=== PATIENT | male | born 1965 | race Hispanic/Latino ===

== ENCOUNTER 2019-05-17 18:06 | Emergency (ER) | payer BC ==
[~2019-05-17] VITALS: Ht 177.8 cm; Wt 132.4 kg
--- OUTSIDE RECORDS SUMMARY | 2019-05-17 18:09 | XMS REPORT | Clinical Summary ---
Author Author [facility] Organization [facility] Address Unknown Phone Unavailable Care Team Providers Care New Car Make Ready Worker Name Role Phone Eben Porter MD PCP Allergies No Known Allergies Medications End Date Status Medication Sig Dispensed Refills Start Date Active diclofenac (VOLTAREN) 75 TAKE 1 TABLET 180 tablet 2 MG EC tablet BY MOUTH 9 TWICE A DAY NEEDED Status Hospital, Clinic, or Ordered Dose Route Frequency Start End Date Other Facility Date Administered Medication Ended methylPREDNISolone 40 mg IM once 10/01/19 acetate (DEPO-MEDROL) 19 9 injection 40 mgIndications: Primary osteoarthritis of both knees Ended bupivacaine (MARCAINE) 1 mL inj once 10/01/19 0.25 % (2.5 mg/mL) 19 9 injection 1 mLIndications: Primary osteoarthritis of both knees Ended methylPREDNISolone 40 mg IM once 10/01/19 acetate (DEPO-MEDROL) 19 9 injection 40 mgIndications: Primary osteoarthritis of both knees Ended bupivacaine (MARCAINE) 1 mL inj once 10/01/19 0.25 % (2.5 mg/mL) 19 9 injection 1 mLIndications: Primary osteoarthritis of both knees Active Problems Problem Noted Date Primary osteoarthritis of both knees 10/10/2018 Class 3 severe obesity with body mass index (BMI) of 45.0 to 49.9 in adult 10/10/2018 Encounters Care Team Description Date Type Specialty Terry Huffman Jr., MD 12/21/2018 Refill Orthopedic Surgery Terry Huffman Jr., MD Primary osteoarthritis of both knees (Primary Dx); Class 3 severe obesity with body mass index (BMI) of 45.0 to 49.9 in adult, unspecified obesity type, unspecified whether serious comorbidity present (HCC); Enchondroma of left femur 10/01/2018 Office Visit Orthopedic Surgery Shabana Clemens, NEGRITA Chronic pain of both knees (Primary Dx) 09/25/2018 Orders Only Orthopedic Surgery after 05/16/2018 Family History Medical History Relation Name Comments No Known Problems Brother No Known Problems Father No Known Problems Mother No Known Problems Sister Relation Name Status Comments Brother Father Mother Sister Social History Date Tobacco Use Types Packs/Day Years Used Never Smoker Smokeless Tobacco: Never Used Drinks/Week oz/Week Comments Alcohol Use No Alcohol Habits Answer Date Recorded How often do you have a drink containing alcohol? Never 10/01/2018 How many drinks containing alcohol do you have on Not asked a typical day when you are drinking? How often do you have six or more drinks on one Not asked occasion? Sex Assigned at Date Recorded Not on file Industry Job Start Date Occupation Not on file Not on file Not on file Travel End Travel History Travel Start No recent travel history available. Last Filed Vital Signs Reading Time Taken Comments Vital Sign 116/75 10/01/2018 10:29 AM TELE RN Blood Pressure 62 10/01/2018 10:29 AM TELE RN Pulse - - Temperature - - Respiratory Rate - - Oxygen Saturation - - Inhaled Oxygen Concentration 150 kg (330 lb) 10/01/2018 10:29 AM TELE RN Weight 177.8 cm (5' 10") 10/01/2018 10:29 AM TELE RN Height 47.35 10/01/2018 10:29 AM TELE RN Body Mass Index Plan of Treatment Health Maintenance Due Date Last Done Comments COLONOSCOPY SCREENING 2013 SHINGLES VACCINES (#1) 2013 INFLUENZA VACCINE 04/23/2019 Procedures Comments Procedure Name Priority Date/Time Associated Diagnosis XR KNEE 3 VW BILATERAL Routine 10/01/2018 Chronic pain of both 9:42 AM TELE RN knees PA ARTHROCENTESIS Routine 10/01/2018 Primary osteoarthritis of ASPIR&/INJ MAJOR JT/BURSA 9:30 AM TELE RN both knees W/O US after 05/16/2018 Results * XR Knee 3 Vw Bilateral (10/01/2018 9:42 AM TELE RN) Specimen Narrative Performed At [facility] No comparisons: Right : significant medial joint space narrowing. Otherwise mild OA. Left : significant medial joint space narrowing. Femoral shaft enchondroma noted. No comparison films immediately available. Consider MRI if this has not been done is some time Performing Organization Address City/State/Zipcode Phone Number ABBIE SUMNER [address] [place] [address] * Large Joint Arthrocentesis: knee, Bilateral knee (10/01/2018 9:30 AM TELE RN) Narrative Performed At Terry Huffman Jr., MD 10/10/20185:59 PM Large Joint Arthrocentesis: knee, Bilateral knee Consent given by: patient Site marked: site marked Timeout: Immediately prior to procedure a time out was called to verify the correct patient, procedure, equipment, technology support analyst and site/side marked as required Supporting Documentation Indications: pain Procedure Details Preparation: Patient was prepped and draped in the usual sterile fashion Location: knee - Bilateral knee Right side: Needle size: 22 G Approach: anteromedial Right knee medications administered: 40 mg methylPREDNISolone acetate 40 mg/mL; 1 mL bupivacaine 0.5 % (5 mg/mL) Patient tolerance: patient tolerated the procedure well with no immediate complications Left side: Needle size: 22 G Approach: anteromedial Left knee medications administered: 40 mg methylPREDNISolone acetate 40 mg/mL; 1 mL bupivacaine 0.5 % (5 mg/mL) Patient tolerance: patient tolerated the procedure well with no immediate complications after 05/16/2018 Insurance Type Payer Benefit Subscriber ID Effective Phone Address Plan / Dates Group PPO BCBS BCBS xxxxxxxxx 2010-P CHOICE resent PPO/JOSE ARANDA PPO Advance Directives For more information, please contact: [phone] Patient Supervisor [employer] Explanation Type Date Recorded Advance Directives, Living Will and Medical Power of Historian [employer]
--- OUTSIDE RECORDS SUMMARY | 2019-05-17 18:09 | XMS REPORT ---
Author Author [facility] Address Unknown Phone Unavailable Care Team Providers Care Family Centered Specialist Name Role Phone Unavailable Unavailable Problems This patient has no known problems. Allergies, Adverse Reactions, Alerts This patient has no known allergies or adverse reactions. Medications This patient has no known medications. Results Test Description Test Time Test Comments Text Results Atomic Results Result Comments GLUBED 2019-04-13 09:18:00 GLUBED (test code=GLUBED) 141 MG/DL 70-105
[2019-05-17 18:34] LABS: BILIRUBIN,URINE NEGATIVE (NEGATIVE); CLARITY,URINE CLEAR (CLEAR); COLOR,URINE YELLOW (YELLOW); KETONES,URINE NEGATIVE (NEGATIVE); LEUKOCYTE ESTERASE ,URINE TRACE (NEGATIVE); NITRITE,URINE NEGATIVE (NEGATIVE); PROTEIN,URINE DIPSTICK NEGATIVE (NEGATIVE); URINE UROBILINOGEN 1 mg/dL (0.2 - 1)
[2019-05-17] MEDS: IBUPROFEN 600 MG TAB PO NR (18:50)
[2019-05-17 19:16] LABS: BASOPHILS % 0.3 % (0.0-1.0); EOSINOPHILS # (AUTO) 0.1 (0.0-0.4); EOSINOPHILS % 0.7 % (0.0-6.0); HEMATOCRIT 38.5 % (38.2-49.6); HEMOGLOBIN 12.5 g/dL (14.0-18.0); LYMPHOCYTES # (AUTO) 1.7 (1.0-3.2); LYMPHOCYTES % 10.8 % (18.0-39.1); MEAN CORPUSCULAR HEMOGLOBIN 28.3 pg (28-32); MEAN CORPUSCULAR HGB CONC 32.5 g/dL (31-35); MEAN CORPUSCULAR VOLUME 87.1 fL (81-99); MONOCYTES # (AUTO) 1.6 (0.2-0.8); MONOCYTES % 10.1 % (4.4-11.3); NEUTROPHILS # (AUTO) 12.3 (2.1-6.9); NEUTROPHILS % 77.7 % (38.7-80.0); PLATELET COUNT 375 x10e3/uL (140-360); RED BLOOD COUNT 4.42 x10e6/uL (4.3-5.7); RED CELL DISTRIBUTION WIDTH 14.6 % (11.7-14.4)
[2019-05-17 19:16] LABS: BACTERIA,URINE FEW /HPF; EPITHELIAL CELLS,URINE RARE /LPF
[2019-05-17 19:23] LABS: ALANINE AMINOTRANSFERASE 32 IU/L (0-55); ALBUMIN 3.7 g/dL (3.5-5.0); ALBUMIN/GLOBULIN RATIO 1.1 (0.8-2.0); ALKALINE PHOSPHATASE 80 IU/L (40-150); ANION GAP 17.4 mmol/L (8-16); BLOOD UREA NITROGEN 13 mg/dL (7-26); BUN/CREATININE RATIO 15 (6-25); CALCIUM 8.7 mg/dL (8.4-10.2); CARBON DIOXIDE 22 mmol/L (22-29); CHLORIDE 102 mmol/L (98-107); CREATININE, SERUM 0.87 mg/dL (0.72-1.25); EST GLOMERULAR FILTRATION RATE > 60 ML/MIN (60-); GLUCOSE 101 mg/dL (74-118); POTASSIUM 4.4 mmol/L (3.5-5.1); SODIUM 137 mmol/L (136-145)
[2019-05-17] MEDS ORDERED: CEFTRIAXONE SOD 1 GM VIAL IV ONE (19:30)
[2019-05-17] MEDS ORDERED: CEFTRIAXONE SOD 1 GM/NS 50 ML 50 ML IV ONE (19:31)
[2019-05-17] MEDS: CEFTRIAXONE SOD 1 GM/NS 50 ML 50 ML IV ONE (19:44)
--- NOTE | 2019-05-17 20:49 | Diagnostic Imaging Report ---
EXAM: CT Abdomen and Pelvis WITHOUT contrast INDICATION: Hematuria COMPARISON: None. TECHNIQUE: Abdomen and pelvis were scanned utilizing a multidetector helical scanner from the lung base to the pubic symphysis without administration of IV contrast. Absence of intravenous contrast decreases sensitivity for detection of focal lesions and vascular pathology. Coronal and sagittal reformations were obtained. Routine protocol was performed. IV CONTRAST: None ORAL CONTRAST: None COMPLICATIONS: None RADIATION DOSE: Total DLP: 886 mGy*cm Estimated effective dose: (DLP x 0.015 x size factor) mSv CTDIvol has been reviewed. It is below the limits set by the Radiation Protocol Committee (RPC). Dose modulation, iterative reconstruction, and/or weight based adjustment of the mA/kV was utilized to reduce the radiation dose to as low as reasonably achievable. FINDINGS: LINES and TUBES: None. LOWER THORAX: Unremarkable HEPATOBILIARY: The liver is enlarged and diffusely hypoattenuating. No focal hepatic lesions. No biliary ductal dilation. GALLBLADDER: There are cholecystectomy clips. SPLEEN: No splenomegaly. PANCREAS: No focal masses or ductal dilatation. ADRENALS: No adrenal nodules KIDNEYS/URETERS: No hydronephrosis. No cystic or solid mass lesions. No stones. GI TRACT: No abnormal distention, wall thickening, or evidence of bowel obstruction. Appendix is normal. Surgical changes of Zach-en-Y gastric bypass. The anastomoses appear intact. PELVIC ORGANS/BLADDER: Urinary bladder is unremarkable.. LYMPH NODES: No lymphadenopathy. VESSELS: Unremarkable. PERITONEUM / RETROPERITONEUM: No free air or fluid. BONES: Unremarkable. SOFT TISSUES: There is a fat containing para-umbilical hernia. IMPRESSION: 1. No evidence of urolithiasis. Evaluation of the urinary bladder wall is limited in the absence of IV contrast. 2. No acute CT abnormalities in the abdomen or pelvis on this limited noncontrast abdominal CT. 3. Hepatomegaly with hepatic steatosis. Signed by: Abran Cartwright DO on 05/17/2019 8:46 PM
[2019-05-17 21:06] VITALS: BP 120/73
== END 2019-05-17 21:11 | disposition home or self-care (01) ==
LOC: ER 18:06
DX: N39.0 Urinary tract infection, site not specified (principal)
CPT/HCPCS: 36415; 74176; 80053; 81001; 85025; 87086; 99284; J0696

== ENCOUNTER 2019-11-01 04:54 | Inpatient (IN) | payer BC ==
[~2019-11-01] VITALS: Ht 177.8 cm; Wt 140.2 kg
[2019-11-01] VITALS (16 sets, daily range): BP systolic 122–167; BP diastolic 68–99
[2019-11-01] MEDS ORDERED: ONDANSETRON HCL INJ 2MG/ML 2ML 2 MG/ML VIAL IV STA (04:57)
[2019-11-01] MEDS ORDERED: MORPHINE SULFATE INJ 4 MG/ML INJ 1ML IV STA (04:57)
[2019-11-01] MEDS ORDERED: ASPIRIN 81 MG CHEW TAB PO ONE ×2 (05:00→06:15)
[2019-11-01 05:31] LABS: BASOPHILS # (AUTO) 0.1 (0.0-0.1); BASOPHILS % 0.5 % (0.0-1.0); EOSINOPHILS # (AUTO) 0.3 (0.0-0.4); EOSINOPHILS % 2.5 % (0.0-6.0); HEMATOCRIT 42.7 % (38.2-49.6); HEMOGLOBIN 13.5 g/dL (14.0-18.0); LYMPHOCYTES # (AUTO) 3.2 (1.0-3.2); MEAN CORPUSCULAR HEMOGLOBIN 28.5 pg (28-32); MEAN CORPUSCULAR HGB CONC 31.6 g/dL (31-35); MEAN CORPUSCULAR VOLUME 90.1 fL (81-99); MONOCYTES # (AUTO) 0.8 (0.2-0.8); MONOCYTES % 6.8 % (4.4-11.3); NEUTROPHILS % 61.2 % (38.7-80.0); PLATELET COUNT 415 x10e3/uL (140-360); RED BLOOD COUNT 4.74 x10e6/uL (4.3-5.7); RED CELL DISTRIBUTION WIDTH 14.6 % (11.7-14.4)
[2019-11-01 05:44] LABS: ALANINE AMINOTRANSFERASE 30 IU/L (0-55); ALBUMIN 3.8 g/dL (3.5-5.0); ALBUMIN/GLOBULIN RATIO 1.2 (0.8-2.0); ALKALINE PHOSPHATASE 72 IU/L (40-150); BLOOD UREA NITROGEN 16 mg/dL (7-26); BUN/CREATININE RATIO 21 (6-25); CALCIUM 8.9 mg/dL (8.4-10.2); CARBON DIOXIDE 26 mmol/L (22-29); CHLORIDE 103 mmol/L (98-107); CREATINE KINASE 167 IU/L (30-200); CREATININE, SERUM 0.78 mg/dL (0.72-1.25); EST GLOMERULAR FILTRATION RATE > 60 ML/MIN (60-); GLUCOSE 116 mg/dL (74-118); SODIUM 141 mmol/L (136-145)
--- NOTE | 2019-11-01 05:48 | Diagnostic Imaging Report ---
EXAMINATION: CHEST 2 VIEWS INDICATION: Left-sided chest pain radiating to the left arm. COMPARISON: None FINDINGS: TUBES and LINES: None. LUNGS: Lungs are well inflated. Lungs are clear. There is no evidence of pneumonia or pulmonary edema. PLEURA: No pleural effusion or pneumothorax. HEART AND MEDIASTINUM: The cardiomediastinal silhouette is unremarkable. BONES AND SOFT TISSUES: No acute osseous lesion. DISH. UPPER ABDOMEN: No free air under the diaphragm. IMPRESSION: No acute thoracic abnormality. Signed by: Dr. Alvina Shepherd M.D. on 11/01/2019 5:46 AM
[2019-11-01] MEDS ORDERED: MORPHINE SULFATE INJ 4 MG/ML INJ 1ML IV PRN (06:15)
[2019-11-01] MEDS ORDERED: ONDANSETRON HCL INJ 2MG/ML 2ML 2 MG/ML VIAL IV PRN (06:15)
[2019-11-01] MEDS ORDERED: LISINOPRIL10 MG PO (06:45)
[2019-11-01] MEDS ORDERED: VITAMIN B-121000 MCG PO (06:45)
[2019-11-01] MEDS ORDERED: DICLOFENAC SODI75 MG PO (06:45)
[2019-11-01] MEDS ORDERED: VITAMIN D400 UNIT PO (06:45)
[2019-11-01] MEDS ORDERED: METFORMIN HCL500 MG PO (06:45)
[2019-11-01] MEDS ORDERED: HYDROCODON-ACE1 EAC9 PO (06:45)
[2019-11-01] MEDS ORDERED: ULTRAM 50MG50 MG PO (06:45)
[2019-11-01] MEDS ORDERED: LIDOCAINE1 EA TOP (06:45)
[2019-11-01] MEDS ORDERED: FISH OIL 1,0001 EAC2 PO (06:45)
[2019-11-01] MEDS ORDERED: FLOMAX0.4 MG PO (06:46)
[2019-11-01] MEDS ORDERED: DEXTROSE 50% SYRINGE 50 ML IV PRN (07:00)
[2019-11-01] MEDS: INSULIN REGULAR, HUMAN 100 UNIT/1 ML 3ML VIAL SQ SCH ×4 (07:39→21:00)
--- NOTE | 2019-11-01 10:29 | NUR ---
DR. Arlene COX AT BEDSIDE UPDATING PATIENT ON PLAN OF CARE. STAT TROPONIN DRAWN, AND TAKEN TO LAB. PATIENT WILL GO FOR STRESS TEST. HIS FAMILY MEMBER IS BRINGING HIS TENNIS SHOES
[2019-11-01 11:11] LABS: CHOL/HDL RATIO 4.4 (3.9-4.7)
--- NOTE | 2019-11-01 11:13 | NUR ---
DR. Srini JO AT BEDSIDE DISCUSSING PATIENTS ELEVATED TROPONIN. HE IS MAKING PATIENT AWARE HE WILL NOT BE GOING TO STRESS TEST, BUT HE WILL BE TAKING HIM TO ELEMENTARY ELL TEACHER
--- NOTE | 2019-11-01 11:15 | NUR ---
PATIENTS FAMILY AT BEDSIDE, AWARE OF PLAN OF CARE
[2019-11-01] MEDS ORDERED: CLOPIDOGREL BISULFATE 75 MG TAB ONE (11:18)
--- NOTE | 2019-11-01 11:18 | NUR ---
LICENSED THERAPIST NOTIFIED TO COME IN
[2019-11-01] MEDS: SODIUM CHLORIDE 0.9% 1000ML 1,000 ML IV SCH ×2 (11:26→15:20)
[2019-11-01] MEDS ORDERED: CLOPIDOGREL BISULFATE 75 MG TAB PO NR (11:30)
[2019-11-01] MEDS ORDERED: ASPIRIN 325 MG TAB EC PO NR (11:30)
[2019-11-01 11:31] LABS: THYROID STIMULATING HORMONE 1.835 uIU/mL (0.350-4.940)
[2019-11-01] MEDS ORDERED: SODIUM CHLORIDE 0.9% 1000ML 1,000 ML ONE ×2 (11:31→11:46)
[2019-11-01] MEDS ORDERED: HEPARIN SOD (PORCINE) 1000 UNIT/ML 30ML ONE (11:45)
[2019-11-01] MEDS ORDERED: FENTANYL CITRATE/PF 100MCG/2 ML INJ ONE (11:46)
[2019-11-01] MEDS ORDERED: LIDOCAINE HCL 2% LOCAL 20 ML VIAL ONE (11:46)
[2019-11-01] MEDS ORDERED: HEPARIN SOD/SOD CHLORIDE 2,000 ML ONE (11:46)
[2019-11-01] MEDS ORDERED: IOPAMIDOL 370 MG/ML 200 ML INFUS..BTL INJ ONE ×2 (11:46→16:49)
[2019-11-01] MEDS ORDERED: EPTIFIBATIDE 75mg 100ML 0 ML ONE (11:46)
[2019-11-01] MEDS ORDERED: NITROGLYCERIN/D5W 200 MCG/ML 250 ML ONE (11:46)
[2019-11-01] MEDS ORDERED: EPTIFIBATIDE 10 ML ONE ×2 (11:46→12:11)
[2019-11-01] MEDS ORDERED: MIDAZOLAM HCL 2 MG/2 ML VIAL ONE (11:46)
[2019-11-01] MEDS ORDERED: VERAPAMIL HCL 2.5 MG/ML 2 ML VIAL ONE (12:02)
[2019-11-01 16:25] LABS: CREATINE KINASE MB 15.2 ng/mL (0-5.0)
[2019-11-01] MEDS ORDERED: SODIUM CHLORIDE 0.9% 50ML 50 ML ONE (16:49)
--- NOTE | 2019-11-01 17:14 | Consultation ---
DATE OF CONSULTATION: 11/01/2019 Cardiac Consultation REASON FOR CONSULTATION: Chest pain. HISTORY OF PRESENT ILLNESS: A 53-year-old gentleman, who is known with diabetes mellitus, hypertension, hyperlipidemia, morbidly obese. The patient does have also arthritis involving several joints including knee and right shoulder. He is on pain management for his right shoulder pain. Yesterday, he was not able to sleep because of his right shoulder pain, so he went to bed and then after that wake up. He had a bite and after that started having pain above the left breast radiating to his left arm. This was different from his arthritis pain. He continued to be having this pain, so he got alarmed about it, he came to the emergency room. In the emergency room, the patient's pain subsided. He is comfortable now. Cardiac consultation is obtained. 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 He had full cardiac evaluation in March 2019 when he had reversal of his gastric bypass surgery including stress test. He is relatively active. REVIEW OF SYSTEMS: GENERAL: No fever. No chills. HEENT: No vision problem. No hearing problem. PULMONARY: Shortness of breath on heavy exertion. No pleuritic chest pain. No recent travel. No hemoptysis. CARDIAC: Class three shortness of breath on exertion. Possible sleep apnea. Occasional palpitation. No orthopnea. No paroxysmal nocturnal dyspnea. GI: Bloating, indigestion at times, GERD, but no GI bleed. : Increased frequency of urination. MUSCULOSKELETAL: Back pain and more importantly, his right shoulder, which is really becoming very severe and he is followed by pain specialist. Tingling and numbness of both hands and tingling and numbness of the feet. ENDOCRINE: The patient is diabetic for the last five years. HEMATOLOGY: No easy bruising or bleeding. SOCIAL HISTORY: He is . He is nonsmoker and non-alcohol drinker. He is mailman. PAST MEDICAL HISTORY: 1. Diabetes mellitus since 2014. 2. Hypertension since 2014. 3. Right shoulder pain and pain management. 4. Gastric bypass surgery and revision in March 2019. 5. Cholecystectomy. 6. Right and left arthroscopic knee surgery. 7. Obesity. 8. Sleep apnea. HOME MEDICATIONS: Flomax 0.4 mg a day, [place] supplement, metformin 500 mg twice a day, lisinopril 10 mg a day, vitamin D3, vitamin B12, diclofenac, hydrocodone, tramadol, and lidocaine patch. FAMILY HISTORY: Father at age 82. He had bypass in his 70s and he was diabetic. Mother at age 67 with myocardial infarction. She was diabetic. One brother, who is diabetic, two sisters, one sister had aortic valve replacement. Two healthy children, one son and one daughter. PHYSICAL EXAMINATION: VITAL SIGNS: Height of 5 feet 10 inches, weight of 292, obese gentleman. Blood pressure 140/80, heart rate of 70, respiratory rate of 18, afebrile. HEENT: Pupils are equal, reactive. NECK: No elevation of jugular venous pulsation. No bruit. CHEST: Clear to auscultation and percussion. HEART: PMI 5th left intercostal space. Normal first and second heart sound. ABDOMEN: Soft. Scar of previous surgeries are noted, laparoscopic scars. No abdominal bruits. EXTREMITIES: No cyanosis, no clubbing, no edema. NEUROLOGIC: Awake, alert, oriented, able to move his extremities. LABORATORY DATA: Sodium of 141, potassium of 4, BUN of 16, creatinine of 0.8, glucose of 116. White blood cell count of 11.3, hemoglobin 13.5, and hematocrit 43%, platelet count of 415,000. First set of cardiac enzymes is normal. IMPRESSION AND PLAN: 1. Diabetes mellitus. 2. Hypertension. 3. Joint pain. 4. Gastric bypass with reversal. 5. Cholecystectomy. 6. End-organ damage secondary to diabetes. 7. Arthritis and right shoulder problem, possible cervical radiculopathy. 8. Chest pain with atypical characteristic. However, patient does have all the risk factor for coronary artery disease. Plan to get stat cardiac enzyme, if is this negative do regular stress test now to further evaluate his problem. We will check an echocardiogram. We will check lipid profile. Pending on the course of symptoms and lab further steps to be done. MD URBANO Frausto/KOKO /[id number]
--- NOTE | 2019-11-01 17:30 | Diagnostic Imaging Report ---
EXAM: CT Chest WITH contrast- Pulmonary Embolism Protocol INDICATION: Chest pain. COMPARISON: Chest radiograph 11/01/2019. TECHNIQUE: Chest was scanned utilizing a multidetector helical scanner from the lung apex through the level of the diaphragm after administration of IV contrast. Thin section reconstructions were obtained with special concentration on the pulmonary arteries. Coronal and sagittal reformations were obtained. Pulmonary embolism protocol was performed. IV CONTRAST: 100 cc of Isovue 370 RADIATION DOSE: Total DLP: 674 mGy*cm Dose modulation, iterative reconstruction, and/or weight based adjustment of the mA/kV was utilized to reduce the radiation dose to as low as reasonably achievable. COMPLICATIONS: None FINDINGS: LINES/ TUBES: None. PULMONARY ARTERIES: Mildly limited secondary to contrast bolus timing. Satisfactory for the evaluation of pulmonary embolism to the segmental level. The subsegmental pulmonary arteries are not well opacified. The main pulmonary artery measures up to 3.6 cm. LUNGS AND AIRWAYS: The central airways are patent. No evidence of pneumonia or pulmonary edema. Minimal dependent atelectasis. PLEURA: The pleural spaces are clear. HEART AND MEDIASTINUM: Partially visualized thyroid gland appears unremarkable. No mediastinal, hilar or axillary lymphadenopathy. No cardiomegaly or pericardial effusion. Mild atherosclerotic calcifications at the aortic arch. UPPER ABDOMEN: Limited contrast-enhanced views of the upper abdomen. Mild diffuse hepatic steatosis. Status post cholecystectomy. Status post gastric bypass. BONES: No acute osseous abnormality. Mild degenerative disc changes in the thoracic spine. SOFT TISSUES: Unremarkable. IMPRESSION: Mildly limited examination secondary to contrast bolus timing. No evidence of pulmonary embolism. Dilated main pulmonary artery, suggestive of pulmonary arterial hypertension. Signed by: Dr. Fredis Choudhary MD on 11/01/2019 5:28 PM
--- NOTE | 2019-11-01 17:45 | NUR ---
Pt received from assistant laboratory director at 1400 to ICU 189. Pt has TR band to the R wrist. Pt stating he is supposed to go receive a CT scan of chest, however no written/computer orders. Dr. Naidu called and gave orders for CT of chest per PE protocol. Troponin ordered as well, per MD pt can have diet ordered after CT. Pt traveled to CT with RN, no s/s of distress at this time. Dr. Naidu informed of CT impression and troponin result. Will continue to monitor the patient.
--- NOTE | 2019-11-01 20:50 | Operative Report ---
DATE OF PROCEDURE: 11/01/2019 SURGEON: Dana Naidu MD TYPE OF REPORT: Cardiac catheterization. PROCEDURES PERFORMED: 1. Left heart cardiac catheterization, coronary angiography. 2. Left ventriculography. INDICATION FOR PROCEDURE: A 53-year-old male with history of hypertension, hypercholesteremia, and morbid obesity, presents to this institution with substernal chest pain, tightness, and troponin went from normal to about 2.3. This is compatible with a diagnosis of non-ST elevation myocardial infarction. Cardiac catheterization laboratory was emergently activated and was taken to the chemical processing laborer after the 2nd troponin came back. DESCRIPTION OF PROCEDURE: After risks, benefits, pros, and cons to this procedure were explained, the patient agreed to proceed. The patient was brought to cardiac catheterization laboratory, where the right wrist was prepped and draped in the usual sterile fashion. Preprocedure Ruiz Barbeau status noted to be normal. A 1% lidocaine solution was used to numb the right wrist region. Access to the right radial artery was obtained utilizing ultrasound guidance, a 5-Argentine long Terumo Glidesheath was placed. Intra-arterial verapamil 2.5 mg and nitroglycerin 200 mcg were given through the sheath and 5000 units of intravenous heparin was given for systemic anticoagulation. Selective coronary angiography of the [place] left and right coronary artery was performed with Matt 4.0 diagnostic catheter. Afterwards angled pigtail catheter was placed in the ventricle for ventriculography. Hemodynamic assessment of ventricular filling pressures. After noting a 50% to 60% very distal hazy right PLV branch stenosis, we decided to treat this medically. The Terumo sheath was removed and a Terumo TR band was successfully deployed achieving hemostasis with a total of 15 mL were placed. COMPLICATIONS: None. ESTIMATED BLOOD LOSS: None. FINDINGS: 1. Left main is angiographically normal, gives rise to an LAD and circumflex branch. 2. LAD and branches are angiographically normal. 3. Left circumflex artery gives rise to four marginal branches with vessel branches angiographically normal. 4. RCA is a large dominant gives rise to right PDA and right PLV. The very distal right PLV branch has a 50% to 60% hazy stenosis, which could be a culprit lesion. 5. Left ventricular ejection fraction is 60% with end-diastolic pressure of 25 mmHg. There is no significant LV to aortic pullback gradient. PLAN/RECOMMENDATIONS: 1. Overall, the patient has distal right PLV branch stenosis of a hazy and far to distal to treat with a percutaneous intervention. 2. Recommend aggressive risk factor modification and medical therapy. 3. Removal of TR band per protocol. MD MENDOZA Bourgeois/KOKO /[id number]
[2019-11-01] MEDS ORDERED: ATORVASTATIN 20 MG TAB PO SCH (21:00)
[2019-11-02] VITALS (16 sets, daily range): BP systolic 113–165; BP diastolic 55–110
[2019-11-02 05:45] LABS: BASOPHILS % 0.3 % (0.0-1.0); EOSINOPHILS # (AUTO) 0.1 (0.0-0.4); EOSINOPHILS % 0.9 % (0.0-6.0); HEMATOCRIT 41.5 % (38.2-49.6); HEMOGLOBIN 13.1 g/dL (14.0-18.0); LYMPHOCYTES # (AUTO) 1.6 (1.0-3.2); LYMPHOCYTES % 14.1 % (18.0-39.1); MEAN CORPUSCULAR HEMOGLOBIN 28.2 pg (28-32); MEAN CORPUSCULAR HGB CONC 31.6 g/dL (31-35); MEAN CORPUSCULAR VOLUME 89.2 fL (81-99); MONOCYTES # (AUTO) 0.9 (0.2-0.8); MONOCYTES % 7.5 % (4.4-11.3); NEUTROPHILS # (AUTO) 8.8 (2.1-6.9); NEUTROPHILS % 76.4 % (38.7-80.0); PLATELET COUNT 395 x10e3/uL (140-360); RED BLOOD COUNT 4.65 x10e6/uL (4.3-5.7); RED CELL DISTRIBUTION WIDTH 14.8 % (11.7-14.4)
[2019-11-02 06:28] LABS: ANION GAP 14.9 mmol/L (8-16); BLOOD UREA NITROGEN 11 mg/dL (7-26); BUN/CREATININE RATIO 16 (6-25); CARBON DIOXIDE 26 mmol/L (22-29); CHLORIDE 104 mmol/L (98-107); EST GLOMERULAR FILTRATION RATE > 60 ML/MIN (60-); GLUCOSE 117 mg/dL (74-118); POTASSIUM 3.9 mmol/L (3.5-5.1); SODIUM 141 mmol/L (136-145)
[2019-11-02] MEDS: INSULIN REGULAR, HUMAN 100 UNIT/1 ML 3ML VIAL SQ SCH ×4 (07:30→20:49)
[2019-11-02] MEDS: CLOPIDOGREL BISULFATE 75 MG TAB PO SCH (09:22)
[2019-11-02] MEDS: ASPIRIN 81 MG ENTERIC COATED PO SCH (09:22)
[2019-11-02] MEDS: METOPROLOL SUCCINATE 25 MG TAB XL PO SCH (09:24)
[2019-11-02] MEDS: LISINOPRIL 10 MG TAB PO SCH (09:25)
[2019-11-02] MEDS: SODIUM CHLORIDE 0.9% 1000ML 1,000 ML IV SCH ×3 (11:41→23:01)
[2019-11-02] MEDS ORDERED: SODIUM CHLORIDE 0.9% 1000ML 1,000 ML ONE (12:25)
--- NOTE | 2019-11-02 12:59 | NUR ---
Nutrition Screen Note RD Recommendation for Physician: - Add 1999 ADA to current diet Plan of Care: RD following, monitoring for tolerance and adequacy - Diet education provided 11/02 Nutrition reason for involvement: MD consult- DM diet education Primary Diagnose(s): chest pain, NSTEMI PMH: DM2, HTN, gastric bypass, cholecystectomy, obesity Ht: 70 in Wt: 309 lb BMI: 44.3 kg/m2 IBW: [address] Assessment: (11/02) 53 YOM admitted for NSTEMI, seen today per consult for diet education. Pt reports good appetite and po intake. Pt reports recent gastric bypass with intended wt loss of approx 20# in the past few months. Pt denies any GI distress. Pt reports that he experiences dumping syndrome and therefore avoids any simple carbohydrates. Pt receptive to diet education at time of visit. Reviewed DM diet restrictions, meal planning, and supplementation s/p gastric bypass- pt verbalized understanding. Chart reviewed. Labs and meds reviewed, POC Gluc 108-116 and A1C 6.2. Will continue to monitor. Current Diet: Cardiac Malnutrition Evaluation (11/02/19) The patient does not meet criteria for a specified degree of malnutrition at this time. Will re-evaluate at follow-up as appropriate. Diet Education Needs Assessment: Diet education indicated, pt receptive- diet education provided Learner(s): pt, pt's family Barriers: none Cultural/Language Modifications: none Readiness: ready Method: handout, discussion Topics: DM2 nutrition therapy, gastric bypass diet modifications Understanding/Compliance: good Diet tolerance: tolerating po Nutrition Care Level: Low Signed: Helen Posey RD, LD, [facility]
[2019-11-02] MEDS ORDERED: TRAMADOL HCL 50 MG TAB PO PRN (17:15)
[2019-11-02] MEDS ORDERED: DICLOFENAC SOD 50 MG TAB PO PRN (17:15)
[2019-11-02] MEDS: HYDROCODONE/APAP 10MG-325MG TAB PO PRN (17:35)
[2019-11-02] MEDS ORDERED: IBUPROFEN 600 MG TAB PO PRN (17:45)
[2019-11-02] MEDS ORDERED: ATORVASTATIN 20 MG TAB PO SCH (21:00)
[2019-11-02] MEDS ORDERED: TAMSULOSIN HCL 0.4 MG CAP PO SCH (21:00)
--- NOTE | 2019-11-02 22:46 | NUR ---
Received patient from ICU via wheelchair. Patient in stable condition, no s/s of distress or c/o pain at this time. All safety measures in place. Family at bedside. Will continue to monitor.
--- NOTE | 2019-11-02 22:53 | NUR ---
REPORT CALLED TO MICHAEL LOVE, PATIENT TRANSPORTED PER W/C TO ROOM 294
[2019-11-03] VITALS: BP 123/78
[2019-11-03 05:40] VITALS: BP 124/69
[2019-11-03] MEDS: HYDROCODONE/APAP 10MG-325MG TAB PO PRN (06:55)
--- NOTE | 2019-11-03 07:03 | NUR ---
Bedside report given to day nurse. Patient resting in recliner, no s/s of distress or c/o pain at this time. All safety measures in place. Family at bedside.
[2019-11-03 07:30] VITALS: BP 114/73
[2019-11-03] MEDS: INSULIN REGULAR, HUMAN 100 UNIT/1 ML 3ML VIAL SQ SCH (07:30)
[2019-11-03 08:00] VITALS: BP 114/73
[2019-11-03] MEDS ORDERED: CYANOCOBALAMIN 1,000 MCG TAB PO SCH (09:00)
[2019-11-03] MEDS: CLOPIDOGREL BISULFATE 75 MG TAB PO SCH (09:00)
[2019-11-03] MEDS ORDERED: CHOLECALCIFEROL 400 UNIT TAB PO SCH (09:00)
[2019-11-03] MEDS: ASPIRIN 81 MG ENTERIC COATED PO SCH (09:00)
[2019-11-03] MEDS: METOPROLOL SUCCINATE 25 MG TAB XL PO SCH (09:00)
[2019-11-03] MEDS ORDERED: OMEGA 3 POLYUNSAT FATTY ACIDS 1000 MG SOFTGEL PO SCH (09:00)
[2019-11-03] MEDS: LISINOPRIL 10 MG TAB PO SCH (09:00)
[2019-11-03] MEDS ORDERED: ATORVASTATIN CA20 MG PO (11:34)
[2019-11-03] MEDS ORDERED: PLAVIX75 MG PO (11:34)
[2019-11-03] MEDS ORDERED: TOPROL XL25 MG PO (11:35)
--- NOTE | 2019-11-03 11:55 | NUR ---
PT DISCHARGE HOME .IV DCD WITHOUT REDNESS OR SWELLING,TRANSPORTED TO [facility] VIA W/C
[2019-11-03 12:00] VITALS: BP 135/70
[2019-11-03] MEDS ORDERED: ONDANSETRON HCL 4 MG ORAL DISINTEGRATING TAB PO PRN (12:15)
== END 2019-11-03 12:00 | disposition home or self-care (01) | DRG 281 ==
LOC: ER 04:54 → ERHOLD 06:21 → UNDOADMOB 06:21 → CATH LAB 11:53 → IMCU 13:14 → ICU 13:49 → OBSVTOIN 11-02 08:38 → MED/SURG3 11-02 22:52
PROC: 4A023N7 Measurement of Cardiac Sampling and Pressure, Left Heart, Percutaneous Approach (ICD-10-PCS; principal; 2019-11-01)
PROC: B2111ZZ Fluoroscopy of Multiple Coronary Arteries using Low Osmolar Contrast (ICD-10-PCS; 2019-11-01)
PROC: B2151ZZ Fluoroscopy of Left Heart using Low Osmolar Contrast (ICD-10-PCS; 2019-11-01)
DX: I21.4 Non-ST elevation (NSTEMI) myocardial infarction (principal); Z68.41 Body mass index [BMI] 40.0-44.9, adult; I25.10 Atherosclerotic heart disease of native coronary artery without angina pectoris; E11.9 Type 2 diabetes mellitus without complications; E78.5 Hyperlipidemia, unspecified; G47.33 Obstructive sleep apnea (adult) (pediatric); E66.01 Morbid (severe) obesity due to excess calories; Z98.84 Bariatric surgery status; M54.12 Radiculopathy, cervical region; R07.89 Other chest pain; M19.90 Unspecified osteoarthritis, unspecified site
CPT/HCPCS: 36415; 71046; 71260; 80048; 80053; 80061; 82550; 82553; 82948; 83036; 83880; 84443; 84484; 85025; 93005; 93306; 93458; 93970; 96374; 99152; 99285; C1769; C1887; G0378; J1327; J1644; J2001; J2250; J2270; J2405; J3010; J7030; Q9967

== ENCOUNTER 2022-06-15 17:24 | Observation (INO) | payer BC ==
[~2022-06-15] VITALS: Ht 177.8 cm; Wt 149.7 kg
[~2022-06-15 17:24] MED LIST: ATORVASTATIN CA20 MG PO; DICLOFENAC SODI75 MG PO; FISH OIL 1,0001 EAC2 PO; FLOMAX0.4 MG PO; HYDROCODON-ACE1 EAC9 PO; LIDOCAINE1 EA TOP; LISINOPRIL10 MG PO; METFORMIN HCL500 MG PO; PLAVIX75 MG PO; TOPROL XL25 MG PO; ULTRAM 50MG50 MG PO; VITAMIN B-121000 MCG PO; VITAMIN D400 UNIT PO
[2022-06-15] MEDS ORDERED: ASPIRIN 81 MG CHEW TAB PO ONE (17:45)
[2022-06-15 17:54] LABS: BASOPHILS # (AUTO) 0.1 (0.0-0.1); BASOPHILS % 0.4 % (0.0-1.0); EOSINOPHILS # (AUTO) 0.2 (0.0-0.4); EOSINOPHILS % 1.3 % (0.0-6.0); HEMATOCRIT 39.4 % (38.2-49.6); HEMOGLOBIN 12.2 g/dL (14.0-18.0); LYMPHOCYTES # (AUTO) 2.6 (1.0-3.2); LYMPHOCYTES % 21.4 % (18.0-39.1); MEAN CORPUSCULAR HEMOGLOBIN 26.4 pg (28-32); MEAN CORPUSCULAR VOLUME 85.3 fL (81-99); MONOCYTES # (AUTO) 1.1 (0.2-0.8); NEUTROPHILS # (AUTO) 7.9 (2.1-6.9); NEUTROPHILS % 66.8 % (38.7-80.0); PLATELET COUNT 462 x10e3/uL (140-360); RED BLOOD COUNT 4.62 x10e6/uL (4.3-5.7); RED CELL DISTRIBUTION WIDTH 16.5 % (11.7-14.4)
[2022-06-15 18:01] LABS: INR 0.85; PROTHROMBIN TIME 12.4 seconds (11.9-14.5)
[2022-06-15 18:02] LABS: PARTIAL THROMBOPLASTIN TIME 29.3 seconds (23.8-35.5)
[2022-06-15 18:09] LABS: ALANINE AMINOTRANSFERASE 32 IU/L (0-55); ALBUMIN 3.7 g/dL (3.5-5.0); ALKALINE PHOSPHATASE 74 IU/L (40-150); ANION GAP 16.9 mmol/L (8-16); BLOOD UREA NITROGEN 15 mg/dL (7-26); BUN/CREATININE RATIO 19 (6-25); CALCIUM 8.8 mg/dL (8.4-10.2); CARBON DIOXIDE 24 mmol/L (22-29); CHLORIDE 104 mmol/L (98-107); CREATINE KINASE 90 IU/L (30-200); CREATININE, SERUM 0.78 mg/dL (0.72-1.25); GLUCOSE 133 mg/dL (74-118); POTASSIUM 3.9 mmol/L (3.5-5.1); SODIUM 141 mmol/L (136-145)
[2022-06-15] MEDS ORDERED: HYDROCODONE/APAP 5MG-325MG TAB PO ONE (19:45)
[2022-06-15] MEDS ORDERED: ONDANSETRON HCL INJ 2MG/ML 2ML 2 MG/ML VIAL IV PRN (20:45)
[2022-06-15] MEDS ORDERED: Morphine 4mg INJECTION 4 MG/ML INJ IV PRN (20:45)
[2022-06-15] MEDS ORDERED: DEXTROSE 50% SYRINGE 50 ML IV PRN (20:45)
[2022-06-15] MEDS: Vancomycin IV 1 GM in SODIUM CHLORIDE 0.9% 250ML 250 ML IV SCH (20:58)
[2022-06-15] MEDS: INSULIN REGULAR, HUMAN 100 UNIT/1 ML SQ SCH (21:00)
[2022-06-15] MEDS ORDERED: ACETAMINOPHEN 325 MG TAB PO PRN (21:00)
[2022-06-15 23:05] VITALS: BP 121/82
[2022-06-15 23:10] VITALS: BP 121/82
[2022-06-16] MEDS ORDERED: MULTI-VITAMIN1 EACH PO (00:01)
[2022-06-16] MEDS ORDERED: ASPIRIN81 MG PO (00:01)
[2022-06-16] MEDS ORDERED: SODIUM CHLORIDE 0.9% 250ML 250 ML ONE (03:03)
[2022-06-16 04:00] VITALS: BP 135/92
[2022-06-16 06:30] LABS: BASOPHILS % 0.4 % (0.0-1.0); EOSINOPHILS # (AUTO) 0.1 (0.0-0.4); EOSINOPHILS % 1.4 % (0.0-6.0); HEMATOCRIT 37.9 % (38.2-49.6); HEMOGLOBIN 12.1 g/dL (14.0-18.0); LYMPHOCYTES # (AUTO) 1.7 (1.0-3.2); LYMPHOCYTES % 16.6 % (18.0-39.1); MEAN CORPUSCULAR HEMOGLOBIN 26.4 pg (28-32); MEAN CORPUSCULAR HGB CONC 31.9 g/dL (31-35); MEAN CORPUSCULAR VOLUME 82.8 fL (81-99); MONOCYTES # (AUTO) 0.9 (0.2-0.8); MONOCYTES % 8.5 % (4.4-11.3); NEUTROPHILS # (AUTO) 7.3 (2.1-6.9); NEUTROPHILS % 71.7 % (38.7-80.0); PLATELET COUNT 452 x10e3/uL (140-360); RED BLOOD COUNT 4.58 x10e6/uL (4.3-5.7); RED CELL DISTRIBUTION WIDTH 16.3 % (11.7-14.4)
[2022-06-16 06:53] LABS: ALBUMIN 3.4 g/dL (3.5-5.0); ALBUMIN/GLOBULIN RATIO 0.9 (0.8-2.0); ANION GAP 19.9 mmol/L (8-16); CALCIUM 8.9 mg/dL (8.4-10.2); CREATININE, SERUM 0.76 mg/dL (0.72-1.25); POTASSIUM 3.9 mmol/L (3.5-5.1)
[2022-06-16] MEDS: INSULIN REGULAR, HUMAN 100 UNIT/1 ML SQ SCH (07:30)
[2022-06-16 08:15] VITALS: BP 134/92
[2022-06-16 08:18] VITALS: BP 134/92
[2022-06-16] MEDS: Vancomycin IV 1 GM in SODIUM CHLORIDE 0.9% 250ML 250 ML IV SCH (08:43)
[2022-06-16 11:39] LABS: CLARITY,URINE CLEAR (CLEAR); COLOR,URINE STRAW (YELLOW); LEUKOCYTE ESTERASE ,URINE NEGATIVE (NEGATIVE); NITRITE,URINE NEGATIVE (NEGATIVE); PROTEIN,URINE DIPSTICK NEGATIVE (NEGATIVE)
[2022-06-16 11:40] LABS: KETONES,URINE NEGATIVE (NEGATIVE); URINE UROBILINOGEN 0.2 mg/dL (0.2 - 1)
[2022-06-16 11:48] LABS: RBC,URINE 0-5 /HPF (0-5); WBC,URINE (MAN) 0-5 /HPF (0-5)
== END 2022-06-16 11:49 | disposition home or self-care (01) ==
LOC: ER 17:45 → ERHOLD 20:42 → INTOOBSV 20:42 → MED/SURG3 23:06
DX: L03.116 Cellulitis of left lower limb (principal); E66.01 Morbid (severe) obesity due to excess calories; Z68.42 Body mass index [BMI] 45.0-49.9, adult; I25.10 Atherosclerotic heart disease of native coronary artery without angina pectoris; E11.9 Type 2 diabetes mellitus without complications; G47.33 Obstructive sleep apnea (adult) (pediatric); I25.2 Old myocardial infarction; N40.0 Benign prostatic hyperplasia without lower urinary tract symptoms; E11.22 Type 2 diabetes mellitus with diabetic chronic kidney disease; N18.9 Chronic kidney disease, unspecified; I11.9 Hypertensive heart disease without heart failure; N39.0 Urinary tract infection, site not specified; Z20.822 Contact with and (suspected) exposure to COVID-19
CPT/HCPCS: 36415 ×2; 80053 ×2; 81001; 82550; 82553; 82948 ×2; 84484; 85025 ×2; 85610; 85730; 87040; 87086; 93971; 94799 ×2; 99284; G0378 ×2; J2270; J2543 ×2; J3370 ×2; J7050 ×2; U0002

== ENCOUNTER 2022-06-19 18:22 | Emergency (ER) | payer BC ==
[~2022-06-19] VITALS: Ht 177.8 cm; Wt 149.7 kg
[~2022-06-19 18:22] MED LIST changes: +ASPIRIN81 MG PO; +MULTI-VITAMIN1 EACH PO
== END 2022-06-19 19:06 | disposition home or self-care (01) ==
LOC: ER 18:31
DX: I10 Essential (primary) hypertension (principal); E11.9 Type 2 diabetes mellitus without complications; D64.9 Anemia, unspecified; G47.30 Sleep apnea, unspecified; Z98.84 Bariatric surgery status
CPT/HCPCS: 99282